=== PATIENT | female | born 1970 | race Caucasian/White ===

== ENCOUNTER → 2017-01-05 | Day surgery (SDC) | payer OTHER ==
[~2017-01-05] VITALS: Ht 165.1 cm; Wt 74.8 kg
== END | disposition home or self-care (01) ==
LOC: FAS 07:52
DX: L72.11 Pilar cyst (principal); Z83.3 Family history of diabetes mellitus; Z80.3 Family history of malignant neoplasm of breast; Z82.49 Family history of ischemic heart disease and other diseases of the circulatory system

== ENCOUNTER → 2021-10-01 | Day surgery (SDC) | payer OTHER ==
[~2021-10-01] VITALS: Ht 165.1 cm; Wt 66.5 kg
[~2021-10-01] MED LIST: ALENDRONATE SOD70 MG PO; IRON325 M1 PO; VITAMIN D-32000 UNIT PO
[2021-10-01 07:59] LABS: HCT 40.4 % (37.0-47.0); HGB 13.8 g/dl (12.5-16.0); MCH 31.3 pg (25.0-31.0); MCHC 34.2 g/dL (32.0-36.0); MCV 91.6 fL (78.0-100.0); MPV 10.6 fL (6.0-9.5); RBC 4.41 M/uL (4.20-5.40); RDW 12.4 % (11.5-14.0); WBC 3.9 K/uL (4.0-10.5)
[2021-10-01 08:20] LABS: ALBUMIN 4.4 g/dL (3.4-5.0); BILIRUBIN - TOTAL 0.7 mg/dL (0.2-1.0); CREATININE 0.81 mg/dL (0.51-0.95); GLOBULIN (CALCULATION) 2.9 g/dL; POTASSIUM 3.5 mmol/L (3.5-5.1); TOTAL PROTEIN 7.3 g/dL (6.4-8.2)
== END | disposition home or self-care (01) ==
LOC: FAS 07:21
PROVIDERS: Surgery
DX: Z12.11 Encounter for screening for malignant neoplasm of colon (principal); K57.30 Diverticulosis of large intestine without perforation or abscess without bleeding; Z86.010 Personal history of colon polyps; Z79.899 Other long term (current) drug therapy
CPT/HCPCS: 36415; 80053; J2704; J7120